=== PATIENT | female | born 1955 | race Caucasian/White ===

== ENCOUNTER 2017-04-14 12:42 | Emergency (ER) | payer MEDICARE, MEDICAID, SELFPAY ==
[2017-04-14] VITALS (15 sets, daily range): BP systolic 118–190; BP diastolic 74–100; PULSE 87–138; RESP 12–24; TEMP 35.8–36; O2SAT 88–102; BMI 36.6
--- NOTE | 2017-04-14 12:43 | EKG12_ITS ---
Test Reason : SEIZURE Blood Pressure : / mmHG Vent. Rate : 109 BPM Atrial Rate : 109 BPM P-R Int : 168 ms QRS Dur : 088 ms QT Int : 354 ms P-R-T Axes : 083 051 078 degrees QTc Int : 476 ms Sinus tachycardia Nonspecific ST and T wave abnormality Abnormal ECG Confirmed by LAURIE MARTIN, EZRA ([id number]), news editor STEPHANIE CHEATHAM ([id number]) on 04/16/2017 10:15:19 AM Referred By: BARB Confirmed By:EZRA SULLIVAN MD
--- NOTE | 2017-04-14 12:47 | CT_ITS ---
STUDY: CT BRAIN WITHOUT CONTRAST REASON FOR EXAM: Female, 61 years old. Seizure RADIATION DOSAGE (If Supplied By Facility): CTDIvol = ( 44.99 ) mGy, DLP = ( 745.49 ) mGycm TECHNIQUE: Transaxial CT imaging of the brain was performed without administration of intravenous contrast material. Individualized dose optimization techniques were used for this CT. COMPARISON: None. FINDINGS: There is a 0.7 x 0.7 x 0.5 cm intraparenchymal hemorrhage in the left temporal lobe (image 15 series 2). There are no additional areas of hemorrhage. There is no acute infarct. The ventricles are normal in configuration. The visualized paranasal sinuses are clear. The mastoid air cells are well aerated. There is no skull fracture. CT/Brain/Head without Contrast IMPRESSION: 0.7 x 0.7 x 0.5 cm intraparenchymal hemorrhage in the left temporal lobe. No additional areas of hemorrhage. No acute infarct. N.B. : The above information has been verbally conveyed by Angel Luis Harding to Dr. Shekhar Billings, Covering Physician, on 04/14/2017 13:56:38 (ET). Electronically Signed: Angel Luis Harding, at 13:48 EST Tel , Service support , N.B. : The above information has been verbally conveyed by Angel Luis Harding to Dr. Shekhar Billings, Covering Physician, on 04/14/2017 13:56:38 (ET).
--- NOTE | 2017-04-14 12:47 | EKG12_ITS ---
Test Reason : REPEAT-SEIZURE Blood Pressure : / mmHG Vent. Rate : 114 BPM Atrial Rate : 114 BPM P-R Int : 160 ms QRS Dur : 082 ms QT Int : 340 ms P-R-T Axes : 071 049 071 degrees QTc Int : 468 ms Sinus tachycardia Otherwise normal ECG Confirmed by LAURIE MARTIN, EZRA ([id number]), editor farm journal STEPHANIE CHEATHAM ([id number]) on 04/16/2017 10:03:30 AM Referred By: BARB Confirmed By:EZRA SULLIVAN MD
[2017-04-14] MEDS: LORazepam 2 MG/ML Syringe IV (12:50)
[2017-04-14 13:09] LABS: Absolute Lymphocyte Count 3.57 X10^3/ul (0.83-4.51); Basophil# 0.03 X10^3/uL; Basophil% 0.4 % (0-1); Eosinophil# 0.12 X10^3/uL; Eosinophils% 1.6 % (0-5); Hematocrit 45.7 % (37-47); Hemoglobin 15.3 g/dl (12.0-15.0); Lymphocyte # 3.57 X10^3/ul (4.0); Lymphocyte % 48.6 % (19-41); Mean Corp Hgb Conc 33.5 g/gl (32-36); Mean Corpuscular Hgb 33.1 pg (27.0-32.0); Mean Corpuscular Volume 98.9 fL (81-99); Mean Platelet Vol. 9.3 fl (6.2-12.0); Monocyte# 0.62 X10^3/uL; Monocyte% 8.4 % (0-10); Neutrophil # 2.99 X10^3/uL (2.7-7.7); Neutrophil % 40.9 % (47-70); POSITIVE COUNT NO; POSITIVE DIFFERENTIAL NO; POSITIVE MORPHOLOGY NO; Platelet Count 114 K/mm3 (150-450); RBC Distribution Width CV 13.4 % (11.6-14.6); RBC Distribution Width SD 48.4 fl (35.1-43.9); Red Blood Count 4.62 M/mm3 (4.2-5.4); White Blood Count 7.3 K/mm3 (4.4-11.0)
--- NOTE | 2017-04-14 13:14 | RAD_ITS ---
STUDY: X-RAY - ABDOMEN/PELVIS REASON FOR EXAM: Female, 61 years old. OG-tube placement. TECHNIQUE: Frontal portable view of the abdomen. COMPARISON: None. FINDINGS: There is an enteric tube noted with its tip in the distal stomach. The visualized lung bases are clear. There is no evidence of bowel obstruction in the visualized abdomen. RAD/Abdomen Single View (Portable) IMPRESSION: Satisfactory position of the enteric tube. Electronically Signed: Angel Luis Harding, at 13:49 EST Tel , Service support ,
--- NOTE | 2017-04-14 13:14 | RAD_ITS ---
STUDY: X-RAY CHEST REASON FOR EXAM: Female, 61 years old. Seizure TECHNIQUE: Frontal portable view of the chest COMPARISON: None. FINDINGS: There is an endotracheal tube noted with its tip approximately 3 cm above the jose. There is an enteric tube noted with its tip extending below the diaphragm. The lungs are clear. There are no pleural effusions. There is no pneumothorax. The heart is normal in size. The visualized osseous structures are within normal limits. RAD/Chest 1 View (Portable) IMPRESSION: Satisfactory position of the support lines and tubes. No acute thoracic pathology. Electronically Signed: Angel Luis Harding, at 15:02 EST Tel , Service support ,
[2017-04-14 13:16] LABS: International Normalized Ratio 1.3; Partial Thromboplast Time 27.2 Seconds (24.1-36.2); Prothrombin Time (Protime)PT. 15.6 SECONDS (11.7-14.9)
[2017-04-14] MEDS: Etomidate 20 MG/10 ML Vial IV ×2 (13:17→15:51)
--- NOTE | 2017-04-14 13:17 | ED.RN ---
ETOMIDATE 20 MG IV GIVEN BY THIS NURSE
[2017-04-14] MEDS: Rocuronium Bromide 50 MG/5 ML Vial 100 MG IV (13:18)
[2017-04-14 13:24] LABS: AST(SGOT) 105 U/L (15-37); Alanine Aminotransfer ALT/SGPT 102 U/L (12-78); Albumin, Serum 3.9 g/dL (3.4-5.0); Alkaline Phosphatase 132 U/L (45-117); Anion Gap 22 (5-15); BUN 14 mg/dL (7-18); BUN/Creat Ratio 12.8 RATIO (10-20); Bilirubin, Direct 0.18 mg/dL (0.00-0.30); Calcium,Total 8.8 mg/dL (8.5-10.1); Chloride 106 mmol/L (98-107); Creatinine, Serum 1.09 mg/dL (0.55-1.02); EST Glomerular Filtration Rate 55 mL/min (>60); Est Glom Filt Rate - Afr Amer 66 mL/min (>60); Estimated Creatinine Clearance 54.04 ml/min; Globulin 5.2 g/dL (2.2-4.2); Glucose 152 mg/dL (70-110); Lipase 234 U/L (73-393); Protein, Total 9.1 g/dL (6.4-8.2); Sodium Level 142 mmol/L (136-145)
--- NOTE | 2017-04-14 13:30 | ED.RN ---
PT TAKE TO CT
[2017-04-14 13:34] LABS: Alcohol, Blood (Medical)-Serum < 3.0 mg/dL
--- NOTE | 2017-04-14 13:40 | ED.VISSUMM ---
- ER Visit Summary Date of Service: 04/14/17 Chief Complaint: EMS called for altered mental status History of Present Illness: The patient is a 61 F who was not appropriate according to paramedics. She had no focal findings. They did not believe she had a stroke. She would not speak. Upon arrival I was asked to see her immediately. Patient is presently seizing and has a generalized tonic-clonic seizure. Pupils were deviated to the left. She is bleeding secondary to biting her tongue. No other history is obtainable. Per old records she has history of spinal stenosis, hepatitis C and hypertension. She has not had an emergency room visit since 2012. Patient's mother present to the ER. She states she spoke to her several times a day and was her normal self. She states she normally comes to her house on Sundays for a meal. She states she noted that her speech was garbled and had difficulty understanding her. The onset of this altered speech was noon. Informant states that she does not speak much in the car. 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 Her grandson was there. [place] [facility] [place] she began to seize. He states he brought her gently to the ground. There is no history of seizures. She has a remote history of heavy alcohol use. There is no known history of illicit drug use. Physical Examination: Patient is obese with a BMI of 36.6. Vitals are remarkable for tachycardia and tachypnea. Patient had rapid deterioration and became cyanotic and pulse ox dropped to 84% on 2 L. There was a good waveform. Per my exam she has both central and peripheral cyanosis. Pupils are 2-3 mm size slightly reactive. She appears to have nystagmus with fast component to the left. TMs are normal. Nares patent. Trach is midline. There is no carotid bruit. Heart is rapid and regular without murmur, gallop or rub. Heart tones are distant. Breath sounds are distant with diminished air movement. Abdomen is soft flabby without guarding. GCS initially was 3. Patient was moved from room 3 to room 2 because of her altered mental status. Patient was combative after the seizure and was given 2 mg of Ativan which would be protective for seizures as well as sedating. She was not hypoxic after the administration of Ativan. Remained combative and 2 mg of Versed was ordered, but the bursa it was never given. Test Results: EKG sinus tachycardia 114. White count is normal with 41 segs no bands 49% lymphs. Basic metabolic panel was marked for CO2 of 14 with an anion gap 22 and glucose 152. Alk phos is 132. ALT and AST are 102 and 105 respectively. Lipase and coags normal. Alcohol less than 3.0. CT of the head reveals a small intraparenchymal bleed peripheral left parietal area. Emergency Department Course and Treatment: Patient received 2 mg of Ativan for seizure activity/combativeness. She was moved from room 3 to room 2 because of concern for deterioration and need for intubation. She did require an ablation because she had central cyanosis. She was placed on 100% nonrebreather. She remained hypoxic. She was ventilated by bag valve mask. Saturation prior to intubation was 9 9%. Patient received 20 mg of etomidate and 100 mg rocuronium. As I was placing the blade to intubate patient she began to vomit. She was intubated with a 7.5 endotracheal tube. Breath sounds were noted bilaterally and there is appropriate color change on capnometer. Since there is no history of seizures and she has altered mental status with small pupils will obtain CAT scan to rule out intracranial bleed, stroke, mass. Also will obtain tox screen and alcohol level to rule out drug abuse. Appropriate blood work was ordered as well. Concerned patient may have aspirated prior to arrival and may have prior to intubation. Orogastric tube was placed for GI decompression and Garcia was placed. Will obtain a blood gas to assess her acid-base status as well as her PaO2. Will make vent setting adjustments per blood gas results Treatment Plan: Mother and grandson were made aware of the intracranial bleed. She requested transfer to [facility]. The guard lieutenant/neurosurgeon for [facility] was paged Disposition: Transfer [facility] ICU Impression: 1. Left parietal intracranial bleed 2. New onset seizure secondary to #1 3. History of hypertension 4. History of hepatitis C 5. History of spinal stenosis 6. History of tobacco use 7. Oral tracheal intubation 8. Critical care time 33 minutes This note was generated with [employer] dictation software. It may contain incorrect words, spelling, and punctuation that were not noted in review of the chart prior to signing ED Disposition - Plan for ED Patient: Chief Complaint: Seizure Referrals: Peewee Samano MD [Primary Care Provider] -
--- NOTE | 2017-04-14 13:46 | ED.RN ---
PT ARRIVED TO THE ER BY EMS ACTIVELY SEIZING. DR DAY CALLED TO THE ROOM. PT HAVING SNORING RESPIRATIONS. PT REPOSITIONED ONTO LEFT SIDE WITH HELP OF EMS. AIRWAY OPENED. PT BECAME COMBATIVE ATTEMPTING TO GET OUT OF THE BED. IV ESTABLISHED. IV ATIVAN GIVEN. PT CONTINUES TO FIGHT WITH STAFF. DR DAY CAME TO THE BEDSIDE. PT COLOR KWAN WITH ASHEN UNDERTONE DIAPHORETIC. PT MOVED TO BED 2. PT LOOKING AT THE STAFF AND WILL TRACK VOICES BUT IS NOT FOLLOWING COMMANDS. PT RESPIRATIONS SLOWING COLOR WORSENING. RESPIRATORY THERAPY STARTED ASSISTING WITH VENTILATIONS WITH AMBU BAG. PT SEDATED AND INTUBATED BY DR DAY. OG INSERTED BY THIS NURSE. PT TAKEN TO CT. PT RETURNED TO ED BED 2. CHEST XRAY COMPLETED AT THE BEDSIDE
--- NOTE | 2017-04-14 13:47 | ED.DCSUM_ITS ---
- ER Visit Summary Date of Service: 04/14/17 Chief Complaint: EMS called for altered mental status History of Present Illness: The patient is a 61 F who was not appropriate according to paramedics. She had no focal findings. They did not believe she had a stroke. She would not speak. Upon arrival I was asked to see her immediately. Patient is presently seizing and has a generalized tonic-clonic seizure. Pupils were deviated to the left. She is bleeding secondary to biting her tongue. No other history is obtainable. Per old records she has history of spinal stenosis, hepatitis C and hypertension. She has not had an emergency room visit since 2012. Patient's mother present to the ER. She states she spoke to her several times a day and was her normal self. She states she normally comes to her house on Sundays for a meal. She states she noted that her speech was garbled and had difficulty understanding her. The onset of this altered speech was noon. Informant states that she does not speak much in the car. She did fruit picker her purse walked into her house. Her grandson was there. When Fifi went to [facility] [place] the grandson she began to seize. He states he brought her gently to the ground. There is no history of seizures. She has a remote history of heavy alcohol use. There is no known history of illicit drug use. Physical Examination: Patient is obese with a BMI of 36.6. Vitals are remarkable for tachycardia and tachypnea. Patient had rapid deterioration and became cyanotic and pulse ox dropped to 84% on 2 L. There was a good waveform. Per my exam she has both central and peripheral cyanosis. Pupils are 2-3 mm size slightly reactive. She appears to have nystagmus with fast component to the left. TMs are normal. Nares patent. Trach is midline. There is no carotid bruit. Heart is rapid and regular without murmur, gallop or rub. Heart tones are distant. Breath sounds are distant with diminished air movement. Abdomen is soft flabby without guarding. GCS initially was 3. Patient was moved from room 3 to room 2 because of her altered mental status. Patient was combative after the seizure and was given 2 mg of Ativan which would be protective for seizures as well as sedating. She was not hypoxic after the administration of Ativan. Remained combative and 2 mg of Versed was ordered, but the bursa it was never given. Test Results: EKG sinus tachycardia 114. White count is normal with 41 segs no bands 49% lymphs. Basic metabolic panel was marked for CO2 of 14 with an anion gap 22 and glucose 152. Alk phos is 132. ALT and AST are 102 and 105 respectively. Lipase and coags normal. Alcohol less than 3.0. CT of the head reveals a small intraparenchymal bleed peripheral left parietal area. Emergency Department Course and Treatment: Patient received 2 mg of Ativan for seizure activity/combativeness. She was moved from room 3 to room 2 because of concern for deterioration and need for intubation. She did require an ablation because she had central cyanosis. She was placed on 100% nonrebreather. She remained hypoxic. She was ventilated by bag valve mask. Saturation prior to intubation was 9 9%. Patient received 20 mg of etomidate and 100 mg rocuronium. As I was placing the blade to intubate patient she began to vomit. She was intubated with a 7.5 endotracheal tube. Breath sounds were noted bilaterally and there is appropriate color change on capnometer. Since there is no history of seizures and she has altered mental status with small pupils will obtain CAT scan to rule out intracranial bleed, stroke, mass. Also will obtain tox screen and alcohol level to rule out drug abuse. Appropriate blood work was ordered as well. Concerned patient may have aspirated prior to arrival and may have prior to intubation. Orogastric tube was placed for GI decompression and Garcia was placed. Will obtain a blood gas to assess her acid-base status as well as her PaO2. Will make vent setting adjustments per blood gas results Treatment Plan: Mother and grandson were made aware of the intracranial bleed. She requested transfer to [facility]. The sharepoint consultant/neurosurgeon for [facility] was paged Disposition: Transfer [facility] ICU Impression: 1. Left parietal intracranial bleed 2. New onset seizure secondary to #1 3. History of hypertension 4. History of hepatitis C 5. History of spinal stenosis 6. History of tobacco use 7. Oral tracheal intubation 8. Critical care time 33 minutes This note was generated with [employer] dictation software. It may contain incorrect words, spelling, and punctuation that were not noted in review of the chart prior to signing ED Disposition - Plan for ED Patient: Chief Complaint: Seizure Referrals: Peewee Samano MD [Primary Care Provider] -
[2017-04-14 14:06] LABS: Bacteria 0 SEEN /hpf (None Seen); Mucous, Urine 0 SEEN /hpf (<or=2+); Red Blood Cells-Urine 0 SEEN /hpf (0-5); Squamous Epithelial Cells - UA 0 SEEN /hpf (5-10); White Blood Cells 0 SEEN /hpf (0-5)
[2017-04-14 14:14] LABS: Color, Urine Straw (Yellow); Glucose, Dipstick Normal (Normal); Ketone-Dipstick 5 mg/dl (Negative); Leukocyte Esterase-Dipstick Negative /ul (Negative); Nitrite-Dipstick Negative (Negative); Occult Blood-Urine 50 /ul (Negative); Protein-Dipstick 30 mg/dl (Negative); Specific Gravity, Urine 1.025 (1.002-1.030); Urine Bilirubin Dipstick Negative (Negative); Urine Clarity Clear (Clear); Urine Urobilinogen Normal (Normal)
[2017-04-14 14:26] LABS: Allen Test POS; Base Excess -3 mmol/L (-2 to +2); Bicarbonate 25.2 mmol/L (22-26); Blood Gas Specimen Type ART; FI02 100; Mode A-C; O2 Delivery Device Vent; PEEP 5; PO2 322 mmHG (75-100); RR 12; SITE R Brachial; SO2 100 % (95-99); Time Given 1404; Total Carbon Dioxide 27 mmol/L; Vt 500; pCO2 65.3 mmHg (35-45); pH 7.19 (7.35-7.45)
[2017-04-14 14:28] LABS: Amphetamine Urine VISTA NEGATIVE (<1000 ng/mL); Barbiturate Urine VISTA NEGATIVE (< 200 ng/mL); Benzodiazepine Urine VISTA NEGATIVE (< 200 ng/mL); Cocaine Urine VISTA NEGATIVE (< 300 ng/mL); Ecstacy Urine VISTA NEGATIVE (< 500 ng/mL); Methadone Urine VISTA NEGATIVE (< 300 ng/mL); PCP Urine VISTA NEGATIVE (< 25 ng/mL); THC Urine VISTA NEGATIVE (< 50 ng/mL); Vista UDS pH Range 5
[2017-04-14] MEDS: Midazolam 2 MG/2 ML Syringe IV ×2 (14:54→15:50)
[2017-04-14] MEDS: Labetalol 100 MG/20 ML Vial 20 MG IV (14:57)
--- NOTE | 2017-04-14 15:39 | ED.RN ---
At approx 1525 pt noted to be moving hands bilat and head. Attempted to calm pt by talking to her and found that pt responded appropriately to questions asked with head nods. Pt shook head no when asked if she had head pain and yes when asked if she could see me. Md. Billings notified of pt's status change. No orders received.
--- NOTE | 2017-04-14 16:06 | ED.RN ---
MERGED WITH [facility] AT THE BEDSIDE. MEDIC IS NOT COMFORTABLE TRANSPORTING THE PT. EVEN AFTER ADDITIONAL SEDATION, PER AMBULANCE CREW PT DIFFICULT TO MANUALLY BAG. ATTEMPTED TO SUCTION. TRANSPORT CREW DOES NOT FEEL COMFORTABLE TAKING THE PT. THIS NURSE [place] [facility] [place] AN AMBULANCE AVAILABLE TO TRANSPORT A VENTILATED PT. [facility]SPORT IS NOT AVAILABLE FOR 4-[address] DAY CHECK TO SEE [facility] OR [facility] ARE ABLE TO FLY DUE TO WEATHER
--- NOTE | 2017-04-14 16:16 | ED.RN ---
[facility] ETA [address] DAY AND SECURITY NOTIFIED
== END 2017-04-14 16:46 | disposition short-term general hospital (02) ==
PROVIDERS: Emergency Provider Emergency Medicine; Family Provider Internal Medicine; PCP Internal Medicine
DX: I61.8 Other nontraumatic intracerebral hemorrhage (principal); R47.89 Other speech disturbances; I10 Essential (primary) hypertension; G40.409 Other generalized epilepsy and epileptic syndromes, not intractable, without status epilepticus; B19.20 Unspecified viral hepatitis C without hepatic coma; M48.00 Spinal stenosis, site unspecified; E66.9 Obesity, unspecified; R23.0 Cyanosis; Z68.36 Body mass index [BMI] 36.0-36.9, adult; Z72.0 Tobacco use
CPT/HCPCS: 31500; 36600; 51702; 70450; 71010; 74000; 80076; 81001; 83690; 85610; 93005; 94002; 96374; 96375; 96376; 99285; 80048; 80307; 80320; 82803; 85025; 85730; 99251; J7030; A4216; G0463; G0480

== ENCOUNTER 2017-08-02 14:53 | Emergency (ER) | payer MEDICARE, MEDICAID, SELFPAY ==
[2017-08-02 14:53] VITALS: BP 114/77; PULSE 76; RESP 18; TEMP 36.3; O2SAT 95
--- NOTE | 2017-08-02 15:01 | CT_ITS ---
STUDY: CT BRAIN WITHOUT CONTRAST REASON FOR EXAM: Female, 61 years old. Loss of consciousness and vomiting following head trauma. History of prior hemorrhagic stroke. RADIATION DOSAGE (If Supplied By Facility): CTDIvol = ( 60.81 ) mGy, DLP = ( 1609.64 ) mGycm TECHNIQUE: Transaxial CT imaging of the brain was performed without administration of intravenous contrast material. Individualized dose optimization techniques were used for this CT. COMPARISON: None. FINDINGS: Normal soft tissue structures. Normal calvarium. There is asymmetrical appearance of the lateral ventricles were there is decreased size of the left lateral ventricle due to edema involving the left parietal occipital lobes. There is evidence of a decreased attenuation in the left temporoparietal lobe with evidence of hemorrhagic contusion in the surrounding cortical sulci. This is suggestive of either an evolving hemorrhagic stroke or with history of trauma, this may represent focal hemorrhagic contusion and edema. Clinical correlation is recommended. Normal basal ganglia and thalami. Normal brainstem. Normal cerebellum. Normal visualized paranasal sinuses. CT/Brain/Head without Contrast IMPRESSION: Findings suggestive of a hemorrhagic stroke versus traumatic contusion with surrounding edema. Electronically Signed: Mikael Yarbrough MD at 15:31 EST Tel [phone], Service support ,
--- NOTE | 2017-08-02 15:01 | EKG12_ITS ---
Test Reason : Blood Pressure : / mmHG Vent. Rate : 077 BPM Atrial Rate : 077 BPM P-R Int : 158 ms QRS Dur : 072 ms QT Int : 400 ms P-R-T Axes : 079 054 068 degrees QTc Int : 452 ms Normal sinus rhythm Normal ECG Confirmed by LAURIE MARTIN, EZRA ([id number]), editor newspaper STEPHANIE CHEATHAM ([id number]) on 08/05/2017 2:55:39 PM Referred By: BARB Confirmed By:EZRA SULLIVAN MD
[2017-08-02] MEDS: Ondansetron 4 MG/2 ML Vial IV (15:08)
[2017-08-02 15:11] LABS: Bedside Glucose 138 mg/dL (70-110)
[2017-08-02 15:15] LABS: Absolute Lymphocyte Count 1.22 X10^3/ul (0.83-4.51); Absolute Neutrophil Count 4.7 X10^3/uL (2.0-7.7); Basophil# 0.01 X10^3/uL; Basophil% 0.2 % (0-1); Eosinophil# 0.04 X10^3/uL; Eosinophils% 0.6 % (0-5); Hematocrit 42.9 % (37-47); Hemoglobin 13.9 g/dl (12.0-15.0); Lymphocyte # 1.22 X10^3/ul (4.0); Lymphocyte % 18.4 % (19-41); Mean Corp Hgb Conc 32.4 g/gl (32-36); Mean Corpuscular Hgb 31.4 pg (27.0-32.0); Mean Corpuscular Volume 96.8 fL (81-99); Mean Platelet Vol. 8.9 fl (6.2-12.0); Monocyte# 0.64 X10^3/uL; Monocyte% 9.6 % (0-10); Neutrophil # 4.72 X10^3/uL (2.7-7.7); POSITIVE COUNT NO; POSITIVE DIFFERENTIAL NO; POSITIVE MORPHOLOGY NO; Platelet Count 83 K/mm3 (150-450); RBC Distribution Width CV 14.8 % (11.6-14.6); RBC Distribution Width SD 52.5 fl (35.1-43.9); Red Blood Count 4.43 M/mm3 (4.2-5.4); White Blood Count 6.6 K/mm3 (4.4-11.0)
[2017-08-02 15:26] LABS: Prothrombin Time (Protime)PT. 13.1 SECONDS (11.7-14.9)
[2017-08-02] MEDS: 0.9% Normal Saline 1,000 ML 150 ML IV (15:26)
[2017-08-02 15:27] LABS: Partial Thromboplast Time 25.8 Seconds (24.1-36.2)
[2017-08-02 15:39] LABS: AST(SGOT) 58 U/L (15-37); Alanine Aminotransfer ALT/SGPT 91 U/L (13-56); Albumin, Serum 3.2 g/dL (3.2-5.0); Alkaline Phosphatase 167 U/L (45-117); BUN 21 mg/dL (7-18); BUN/Creat Ratio 24.8 RATIO (10-20); Calcium,Total 8.4 mg/dL (8.5-10.1); Chloride 108 mmol/L (98-107); Creatinine, Serum 0.85 mg/dL (0.55-1.02); EST Glomerular Filtration Rate 73 mL/min (>60); Est Glom Filt Rate - Afr Amer 88 mL/min (>60); Globulin 4.3 g/dL (2.2-4.2); Glucose 122 mg/dL (74-106); Potassium 3.9 mmol/L (3.5-5.1); Protein, Total 7.5 g/dL (6.4-8.2); Sodium Level 139 mmol/L (136-145)
[2017-08-02 15:40] LABS: Anion Gap 7 (5-15)
--- NOTE | 2017-08-02 15:45 | ED.VISSUMM ---
- ER Visit Summary Date of Service: 08/02/17 Chief Complaint: Altered level of consciousness History of Present Illness: The patient is a 61 F who was brought to the emergency room because of altered level of conscious. She is not alert nor has she oriented. Her speech is garbled. Unable to obtain any history. Physical Examination: Vital signs are unremarkable. There is blood noted around the left side of the mouth. There is blood noted over the left earlobe and emesis in her hair. She responds I am cold to the questions asked. Pupils are 2-3 mm and responsive. There is no scleral icterus. Conjunctive is not injected. There is no hemotympanum. There is no CSF otorrhea rhinorrhea. Trach is midline. Lungs are clear to auscultation. Heart is regular. Abdomen soft nontender. She withdraws to tactile stimuli. Reflexes are 2+ and symmetric upper and lower extremity. She withdraws to Babinski testing. There is no clonus. Test Results: CBC is unremarkable. Electrode panel is unremarkable. Coags are unremarkable. Acetaminophen level is less than 2. CT of the head reveals neurogenic edema with question of mass-effect. Emergency Department Course and Treatment: Since she is on acetaminophen a segmental level was obtained. EKG was obtained as well as CAT scan because of concern for traumatic brain injury. Blood work was obtained which included a CBC, BMP, hepatic and coags. Treatment Plan: Called me and informed me that his mother's been complaining of headache for the past 3 days. She was last spoken to at 2130 last evening, August 01. Her mental status has not improved much. Her response to questions are I feel cold or I am okay . Disposition: Deferred to [facility] emergency room accepting physicians Dr. Escobedo and Dr. Parish Bell Impression: 1. Altered mental status 2. Neurogenic edema with mass-effect left parietal region 3. History of seizure disorder 4. History of depression 5. History of hypertension This note was generated with [employer] dictation software. It may contain incorrect words, spelling, and punctuation that were not noted in review of the chart prior to signing ED Disposition - Plan for ED Patient: Chief Complaint: Alt LOC Referrals: Peewee Samano MD [Primary Care Provider] -
[2017-08-02 16:14] VITALS: BP 114/58; PULSE 83; RESP 20; O2SAT 97
--- NOTE | 2017-08-02 17:01 | NURSING ---
Spoke with pharmacist at [facility] and pt has no known allergies listed.
[2017-08-02 17:05] LABS: Acetaminophen (Tylenol) Level < 2.0 ug/mL (10.0-30.0)
[2017-08-02 18:00] VITALS: BP 112/61; PULSE 81; RESP 24; O2SAT 94
[2017-08-02 20:03] VITALS: BP 120/64; PULSE 90; PULSE 91; RESP 17; RESP 23; O2SAT 93; O2SAT 94
[2017-08-02 20:25] VITALS: BP 125/75; PULSE 94; RESP 19; O2SAT 94
--- NOTE | 2017-08-02 20:34 | NURSING ---
DR DAY CALLED SON, TRACE, AND UPDATED HIM OF TRANSFER TO [facility].
== END 2017-08-02 20:58 | disposition short-term general hospital (02) ==
PROVIDERS: Emergency Provider Emergency Medicine; Family Provider Internal Medicine; PCP Internal Medicine
DX: R41.82 Altered mental status, unspecified (principal); R22.0 Localized swelling, mass and lump, head; G40.909 Epilepsy, unspecified, not intractable, without status epilepticus; F32.9 Major depressive disorder, single episode, unspecified; I10 Essential (primary) hypertension; E66.9 Obesity, unspecified; Z79.899 Other long term (current) drug therapy
CPT/HCPCS: 51702; 70450; 80048; 80076; 80329; 82962; 84484; 85025; 85610; 85730; 93005; 96361; 96374; 99285; J7030; A4216; G0480; J2405

== ENCOUNTER → 2017-09-30 09:01 | Outpatient (CLI) | payer MEDICARE, MEDICAID, SELFPAY | PROVIDERS: Family Provider Internal Medicine; PCP Internal Medicine; Visit Provider Internal Medicine Hematology & Oncology | DX: C71.9 Malignant neoplasm of brain, unspecified (principal); D89.9 Disorder involving the immune mechanism, unspecified | CPT/HCPCS: 94642 ==

== ENCOUNTER → 2017-11-08 09:09 | Outpatient (CLI) | payer MEDICARE, MEDICAID, SELFPAY | PROVIDERS: Family Provider Internal Medicine; PCP Internal Medicine; Visit Provider Internal Medicine Hematology & Oncology | DX: C71.9 Malignant neoplasm of brain, unspecified (principal); B19.20 Unspecified viral hepatitis C without hepatic coma; D89.9 Disorder involving the immune mechanism, unspecified | CPT/HCPCS: 94642 ==

== ENCOUNTER 2018-05-25 15:13 | Observation (INO) | payer MEDICARE, MEDICAID, SELFPAY ==
[2018-05-25 15:14] VITALS: BP 115/80; PULSE 81; RESP 16; TEMP 36.6; O2SAT 98; BMI 27.2
--- NOTE | 2018-05-25 15:29 | RAD_ITS ---
STUDY: X-RAY - LEFT SHOULDER REASON FOR EXAM: Female, 62 years old. Fall today, left shoulder pain with deformity TECHNIQUE: 3 view(s) of the shoulder. COMPARISON: None. FINDINGS: There is a transverse dominant fracture of the humeral neck with a longitudinal component extending through the greater tuberosity. There is approximately at least 1.1 cm displacement. The humeral head is in gross alignment with the glenoid. There is diffuse soft tissue swelling. Normal visualized pulmonary apex. RAD/Shoulder min 2 Views IMPRESSION: Left humeral neck fracture with displacement. Electronically Signed: Ryne Florian MD at 16:32 EST , Service support ,
--- NOTE | 2018-05-25 15:29 | RAD_ITS ---
STUDY: X-RAY - LEFT WRIST REASON FOR EXAM: Female, 62 years old. Fall, pain of the left wrist TECHNIQUE: 3 view(s) of the wrist were obtained. COMPARISON: None. FINDINGS: Normal visualized distal radius and ulna. Normal radiocarpal articulation. Normal distal radioulnar articulation. Normal carpal bones. Normal carpal articulations. There is an accessory ossicle adjacent to the ulnar styloid. There is degenerative arthrosis of the carpometacarpal articulation of the thumb. Normal second through fifth carpometacarpal articulations. Normal visualized metacarpal bones. The soft tissue structures are unremarkable. RAD/Wrist min 3 Views IMPRESSION: No fracture or malalignment. Electronically Signed: Ryne Florian MD at 16:31 EST , Service support ,
--- NOTE | 2018-05-25 15:29 | CT_ITS ---
STUDY: CT BRAIN WITHOUT CONTRAST REASON FOR EXAM: Female, 62 years old. Patient fell and hit left forehead, history of brain surgery RADIATION DOSAGE (If Supplied By Facility): CTDIvol = ( ) mGy, DLP = ( ) mGycm TECHNIQUE: Transaxial CT imaging of the brain was performed without administration of intravenous contrast material. Individualized dose optimization techniques were used for this CT. COMPARISON: 08/02/2017 FINDINGS: There is soft tissue swelling of the left periorbital scalp. There are operative changes of the left temporoparietal bone, new since the prior study. Increased mass affect in the left posterior frontal, parietal and temporal lobes with similar asymmetric narrowing of the left lateral ventricle. There is mild left to right midline shift (4 mm) which is similar when compared to the prior study. Increased vasogenic edema in the left frontal, parietal and temporal lobes with small focal areas of increased density in the posterior temporal lobe on axial image 18 that could represent petechial hemorrhage (more likely chronic than acute) or calcification, new since the prior study. Normal basal ganglia and thalami. Normal brainstem. Normal cerebellum. There is no intracranial hemorrhage. There are no findings of an acute ischemic infarction. Normal visualized paranasal sinuses. CT/Brain/Head without Contrast IMPRESSION: 1. Increasing vasogenic edema and mass effect of the left parietal, temporal and frontal lobes, suggesting underlying neoplasm. Operative changes of the left calvarium. Punctate densities are new since the prior study, likely related to prior surgery (chronic hemorrhage) or calcification. 2. Left frontal/periorbital soft tissue swelling. No subarachnoid hemorrhage is seen. No subdural hematoma. Electronically Signed: Ryne Florian MD at 16:30 EST , Service support ,
--- NOTE | 2018-05-25 15:36 | ED.VISSUMM ---
- ER Visit Summary Date of Service: 05/25/18 Chief Complaint: Fall from standing position with injury to head, and left upper extremity. Patient was seen approximately 12 months ago and had an intracranial bleed with status epilepticus. She was transferred to outside facility. She underwent surgery for apparent brain tumor. History of Present Illness: The patient is a 62 F who fell from a standing position. She complains of head pain with nausea without vomiting. She denies double vision or blurred vision. She denies ringing or ears or decreased hearing. She denies neck pain. She denies new paresthesia, anesthesia or motor weakness. She reports pain that she localizes to the left shoulder and left wrist. Difficult to understand secondary to slurred speech which is secondary to the surgery according the mother. She denies cardiac or respiratory symptoms. She denies vomiting or diarrhea. She denies myalgias, arthralgias. She is on no anticoagulant. She does not answer questions that are asked. Physical Examination: Vital signs noted and normal. She has a significant subcutaneous hematoma involving the left brow, forehead and sabianist area. There is no palpable depression. Pupils equal round reactive paradoxic muscle intact. Sclerae anicteric. There is no subconjunctival hemorrhage. No CSF otorrhea Parmjit. No hemotympanum. No septal deviation hematoma. No TMJ tenderness and no evidence of malocclusion. Trach is midline. Is no midline cervical tenderness. There is significant pain over the proximal humerus. Is no pain the patient over the clavicle or AC joint. There is no pain the patient of the lateral medial malleolus or olecranon process. There is no pain the patient of the radial head. There is pain abrasion over the distal radius and carpal bones. There is slight soft tissue swelling noted. There is an abrasion noted as well. There is no pain the patient over the metacarpal bones or phalanges. Axillary, median, radial and ulnar function intact. Chest is nontender. Heart is regular without murmur, gallop or rub. Lungs are clear auscultation. Abdomen soft nontender. Is no pain palpation of the pelvis. GCS is 14. Test Results: Three-view x-ray of the left shoulder reveals a nondisplaced proximal humeral fracture involving the greater tuberosity and surgical neck. The three-view x-ray of the wrist reveals no acute process. Furthermore there is no evidence of volar fat pad. CT of the head reveals subcutaneous hematoma and increased vasogenic edema from prior. She has known cancer. Emergency Department Course and Treatment: We will obtain CT of the head to evaluate for intracranial bleed and fracture. Also obtain x-ray of the left shoulder and wrist to evaluate for fracture. Patient was offered pain medicine, which she declined. Treatment Plan: Sling and swath referral to Dr. Liban Atkinson. Follow-up with oncologist Disposition: Discharge to home Impression: 1. Nondisplaced proximal humeral fracture left initial encounter 2. Left wrist contusion initial encounter 3. Known brain cancer with no evidence of intracranial bleed This note was generated with [employer] dictation software. It may contain incorrect words, spelling, and punctuation that were not noted in review of the chart prior to signing ED Disposition - Plan for ED Patient: Chief Complaint: Fall Instructions: ED Fx Shoulder, ED Sling and Swathe, ED Contusion Upper Ext, ED Concussion Referrals: Peewee Samano MD [Primary Care Provider] - As Needed Liban Atkinson DO [STAFF PHYSICIAN] - 5-7 Days
[2018-05-25] MEDS: Diphth,Pertuss(Acell),Tet Vac 0.5 ML Vial IM (16:01)
[2018-05-25] MEDS: Morphine 4 MG/ML Syringe 6 MG IV (16:40)
[2018-05-25] MEDS: Ondansetron 4 MG/2 ML Vial IV (16:40)
[2018-05-25 17:42] VITALS: PULSE 61; RESP 12
[2018-05-25] MEDS: morphine 8 MG/ML Syringe 6 MG IV (18:21)
--- NOTE | 2018-05-25 18:32 | ED.VISSUMM ---
- ER Visit Summary Date of Service: 05/25/18 Chief Complaint: [] History of Present Illness: The patient is a 62 F [] Physical Examination: [] Test Results: [] Emergency Department Course and Treatment: [] Treatment Plan: [] Disposition: [] Impression: [] This note was generated with [employer] dictation software. It may contain incorrect words, spelling, and punctuation that were not noted in review of the chart prior to signing ED Disposition - Plan for ED Patient: Chief Complaint: Fall Instructions: ED Concussion, ED Contusion Upper Ext, ED Fx Shoulder, ED Sling and Swathe Prescriptions: Oxycodone HCl/Acetaminophen [Percocet 5/325] 1 tab PO Q6H PRN PRN 5 Days #20 tab PRN Reason: Pain Referrals: Liban Atkinson DO [STAFF PHYSICIAN] - 5-7 Days Peewee Samano MD [Primary Care Provider] - As Needed
--- NOTE | 2018-05-25 18:35 | ED.DCSUM_ITS ---
- ER Visit Summary Date of Service: 05/25/18 Chief Complaint: [] History of Present Illness: The patient is a 62 F [] Physical Examination: [] Test Results: [] Emergency Department Course and Treatment: [] Treatment Plan: [] Disposition: [] Impression: [] This note was generated with [employer] dictation software. It may contain incorrect words, spelling, and punctuation that were not noted in review of the chart prior to signing ED Disposition - Plan for ED Patient: Chief Complaint: Fall Instructions: ED Concussion, ED Contusion Upper Ext, ED Fx Shoulder, ED Sling and Swathe Prescriptions: Oxycodone HCl/Acetaminophen [Percocet 5/325] 1 tab PO Q6H PRN PRN 5 Days #20 tab PRN Reason: Pain Referrals: Liban Atkinson DO [STAFF PHYSICIAN] - 5-7 Days Peewee Samano MD [Primary Care Provider] - As Needed
--- NOTE | 2018-05-25 19:01 | ED.RN ---
SON CALLED TO INQUIRE ABOUT PATIENT'S STATUS AND MADE AWARE THAT SHE WAS TO BE DISCHARGED HOME AND DID NOT MEET ADMISSION CRITERIA, SON WAS UPSET ABOUT PLAN OF CARE AND SEWING MACHINES SALESPERSON MADE AWARE.
--- NOTE | 2018-05-25 19:40 | CM.ED ---
SOCIAL WORK NOTE THIS WORKER SPOKE WITH PT'S OLDEST SON, HERIBERTO [phone]. SON REPORTS CONCERNS WITH PT BEING DISCHARGED TO THE STREET. SON VERY CONCERNED WITH PT'S CONDITION AND REQUESTING PT BE OBSERVED OVER NIGHT. SON REPORTS PT LIVES HOME ALONE AND STATES MANY SOCIAL ISSUES. SON STATES LIVES [address] AND WILL BE ABLE TO COME TO THE HOSPITAL TOMORROW. UPDATED NURSE, RALF ON THE ABOVE. THIS WORKER AND NURSE TO UPDATE DR. DAY ON SON'S CONCERNS. WILL FOLLOW.
--- NOTE | 2018-05-25 19:42 | PCM.HP.STD ---
Problem List (1) Left humeral fracture Status: Acute (2) Head contusion Status: Acute History of Present Illness Date of Admission: 05/25/18 Chief Complaint: fall The patient is a 67-year-old female with a significant history of brain cancer who had a fall today because of missed steps. Patient had expressive aphasia and is difficult to obtain accurate history from her. At emergency department CT scan of the head showed increasing vasogenic edema. Humerus x-ray of the left showed humeral neck fracture with displacement for which patient had a sling and swath. X-ray of the left wrist was unremarkable. Per emergency department doctor patient's son wants patient to be a DNR CC. Past Medical History Allergies diclofenac Allergy (Verified 04/14/17 14:26) GI UPSET duloxetine [From Cymbalta] Allergy (Verified 04/14/17 14:26) MENTAL STATUS CHANGES erythromycin base Allergy (Verified 04/14/17 14:26) Vomiting gabapentin Allergy (Verified 04/14/17 14:26) Unknown naproxen Allergy (Verified 04/14/17 14:26) Upset Stomach neomycin Allergy (Verified 04/14/17 14:26) Vomiting polymyxin B Allergy (Verified 04/14/17 14:26) Nausea Sulfa (Sulfonamide Antibiotics) Allergy (Verified 04/14/17 14:26) STOMACH REACTIONS Home Medications: Ambulatory Orders Medication Instructions Recorded Atenolol [Tenormin (beta Cruz)] 25 mg PO DAILY 04/14/17 traMADol [Ultram (G)] 50 mg PO TID PRN PRN 04/14/17 Acetaminophen [Tylenol Extra 500 mg PO Q6H PRN PRN 08/02/17 Strength] Atenolol [Tenormin (beta Cruz)] 25 mg PO DAILY 08/02/17 Methocarbamol [Robaxin-750] 1,500 mg PO BID 08/02/17 Multivit-Min/FA/Lycopen/Lutein 1 each PO DAILY 08/02/17 [Centrum Silver Tablet] Quetiapine Fumarate [Seroquel] 50 mg PO QHS 08/02/17 levETIRAcetam tablet [Keppra 500 mg PO BID 08/02/17 tablet] traMADol [Ultram] 50 mg PO Q8H PRN 08/02/17 Oxycodone HCl/Acetaminophen 1 tab PO Q6H PRN PRN 5 Days #20 tab 05/25/18 [Percocet 5/325] Surgical History: - - Brain surgery. Lives: Alone Smoking Status: Former smoker - *Family History Maternal History Items: - - Unable to be obtained since patient is severely aphasic. Paternal History Items: - - Unable to be obtained since patient is severely aphasic. Review of Systems Unable to obtain accurate/complete ROS d/t: patient is severely aphasic. VTE Information - Inpt Only VTE Present on Admission: No VTE Mechan Device Prophylaxis: None VTE Pharm Prophylaxis ordered?: Yes Patient Problems: Active and Suspected Problems (This Medical Record has been edited. Action required.) Left humeral fracture (Acute) Head contusion (Acute) - Physical Exam General: Alert, Confused HEENT: - - Left supra orbital swelling and erythema Neck: Supple, No JVD, Negative Carotid Bruits Lungs: Clear to auscultation, Normal air movement Cardiovascular: Regular rate, No murmurs Abdomen: Bowel Sounds Present, Soft, Non Tender Extremities: - - Left in sling and swath. Left shoulder severely tender. Left wrist mildly tender. Skin: No rashes Musculoskeletal: Tenderness - Left shoulder; left wrist Neurological: - - Patient is alert but she has expressive aphasia with intermittent clear speech; chronic.. Psych/Mental Status: Normal Affect Vital Signs Temp Pulse Resp BP Pulse Ox 97.8 F 61 12 115/80 98 05/25/18 15:14 05/25/18 17:42 05/25/18 17:42 05/25/18 15:14 05/25/18 15:14 Oxygen Delivery Method Room Air Weight: 86.183 kg Body Mass Index (BMI) 27.2 Finger Stick Blood Glucose 138 Assessment/Plan All Active Problems (This Medical Record has been edited. Action required.) Left humeral fracture (Acute) Head contusion (Acute) The patient is a 67-year-old female with a significant history of brain cancer who had a fall today because of missed steps and with a left supraorbital swelling; left shoulder pain; left wrist pain and radiographic evidence of left humeral neck fracture with displacement for which patient had a sling and swath. Humeral neck fracture with displacement By radiologist interpretation there is approximately at least 1.1 cm displacement. The humeral head is in gross alignment of the glenoid. Patient had a sling with swath. Per emergency department doctor patient supposed to follow-up with orthopedic surgeon Dr. Atkinson in 5-7 days. Pain control with oxycodone as needed. Antiemetics and bowel protocol in the setting of narcotic administration. Left supra orbital contusion Apply ice. Left wrist pain Secondary to fracture Oxycodone as needed. Brain tumor with vasogenic edema A CT of the head showed increasing vasogenic edema; small focal areas of increased density in the posterior temporal lobe which was interpreted as more likely chronic. Family does not want any aggressive care at this time. The emergency department doctor family reported that her cancer is not treatable at this time. Receive Decadron at emergency department Decadron continue. Because family believed that patient was unable to take care of herself patient could be discharged home. steel construction worker consult to discuss next steps and disposition home. At this point patient is only at the hospital because family believes that she will be able to take care of herself at home. Hypertension On admission her blood pressure was fairly stable Atenolol continued. Trend blood pressure and adjust blood pressure medication as necessary. DVT prophylaxis Lovenox. CODE STATUS: Emergency department doctor reported that he spoke to Ryne Gabriel, Son and patient's mother. Emergency department doctor family agreed that patient wishes to be DNR CC with no CPR or intubation; or any aggressive treatment. Code Visit OBSV E&M: 72233 Initial observation care L3
--- NOTE | 2018-05-25 20:07 | CM.ED ---
SOCIAL WORK NOTE DR. DAY REQUESTING TO SPEAK WITH PT'S SON, HERIBERTO. CONTACT INFORMATION PROVIDED. DR. DAY ON PHONE WITH SON AT THIS TIME. YOEL GRIGGS, VIDEO PRODUCTION SPECIALIST, SOLAR PHOTOVOLTAIC INSTALLER.
--- NOTE | 2018-05-25 20:08 | CM.ED ---
SOCIAL WORK NOTE UPDATED NURSE, RALF, SPOKE WITH SON, HERIBERTO. HERIBERTO DOES NOT FEEL COMFORTABLE WITH PT BEING D/C'ED TO HOME. HERIBERTO CONCERNED WITH PT'S CONDITION AND REQUESTING PT BE OBSERVED OVERNIGHT. NURSING AND THIS WORKER TO UPDATE DR. DAY. YOEL GRIGSG, BILLIARD PLAYER, MANAGER COMPANY.
[2018-05-25 20:13] VITALS: BP 128/79; PULSE 79; RESP 17; O2SAT 95
--- NOTE | 2018-05-25 20:13 | CM.ED ---
SOCIAL WORK ASSESSMENT REFERRAL DATE: 05/25/18 DATE OF ASSESSMENT: 05/25/18 INFORMANT: PT'S NURSERALF REASON FOR CONSULT: FAMILY DYNAMICS/D/C PLANNING, SON DOES NOT FEEL IT IS SAFE FOR PT TO D/C HOME, TRANSPORTATION CONCERNS INFORMATION OBTAINED FROM: NURSERALF AND PT'S SONHERIBERTO ([phone]) LIVING ARRANGEMENTS: PER SON, PT LIVES HOME ALONE IN AN APARTMENT. PT'S MOTHER WHO IS IN HER 90'S ASSISTS ABLE. SUPPORTS: PT HAS LIMITED SUPPORT FROM FAMILY. SOCIAL/FAMILY STRESSORS: SON STATES DIFFICULT FAMILY DYNAMICS AND SOCIAL CONCERNS. SON CONTINUED TO STATE THAT PT SHOULD NOT BE D/C'ED HOME. SON STATES HAS ALREADY CONTACTED THE COURTS FOR GUARDIANSHIP HE DOES NOT FEEL PT IS ABLE TO MAKE OWN DECISIONS. MENTAL HEALTH HX:SON STATES PT WITH HX OF MENTAL HEALTH. SON UNSURE OF DIAGNOSIS. SUBSTANCE ABUSE HX: SON REPORTS PT WITH HX OF ALCOHOLISM AND DRUG ABUSE. ASSESSMENT: PT PRESENTS TO THE ED VIA SQUAD D/T FALL. PT WITH HEMATOMA TO LEFT EYE AFTER FALLING ON THE CEMENT. PT WITH HX OF BRAIN CANCER. ALL INFORMATION GATHERED THROUGH CHART REVIEW AND DISCUSSION WITH SON. PT UNABLE TO CARRY ON APPROPRIATE CONVERSATION D/T SPEECH FROM BRAIN CA. PER SON, UNSURE OF PT'S CURRENT CANCER TREATMENT OR IF SHE IS RECEIVING ANY FURTHER TREATMENT. SON REPORTS DIFFICULT FAMILY DYNAMICS. SON STATES PT'S ELDERLY MOTHER ASSISTS ABLE AND STATES PT IS NORMALLY INDEPENDENT AND LIVES ALONE IN AN APARTMENT. SON STATES PT WITH HX OF MENTAL HEALTH AND SUBSTANCE ABUSE. SON VOICES, I'M CONCERNED THE HOSPITAL DOES NOT WANT TO KEEP HER D/T HER PREVIOUS BEHAVIORS. SON ALSO CONTINUED TO STATE THE HOSPITAL SHOULD NOT D/C PT D/T LIABILITY REASONS. MUCH EDUCATION, ACTIVE LISTENING AND SUPPORT PROVIDED TO SON. SON STATES HE DOES NOT FEEL COMFORTABLE WITH PT BEING D/C'ED THIS DAY WITHOUT MONITORING OVER NIGHT HE STATES PT HIT HER HEAD. SON CONTINUED TO STATE, I KNOW MY MOM IS DYING. EMOTIONAL SUPPORT PROVIDED. DISCUSSED FUTURE NEED OF PALL CARE/HOSPICE IF PT HAS STOPPED ANY FURTHER TREATMENT FOR CANCER. SON IN AGREEMENT AND CONTINUES TO DISCUSS NEED TO FOLLOW THROUGH WITH GUARDIANSHIP OF PT. INFORMED SON THIS WORKER WILL DISCUSS ALL CONCERNS WITH DR. DAY. PLAN: NATHANAEL GRIGGS, INSTALL AND REPAIR TECHNICIAN, PILOT INSTRUCTOR.
--- NOTE | 2018-05-25 20:40 | CM.ED ---
SOCIAL WORK NOTE PT TO BE ADMITTED.
[2018-05-25 20:59] VITALS: BMI 28.4
[2018-05-25 21:02] VITALS: BP 111/71; PULSE 81; RESP 16; TEMP 36.6; O2SAT 98
--- NOTE | 2018-05-25 21:08 | NURSING ---
Pt is unable to answer questions and speech is at times incoherent. Unable to obtain med list.
[2018-05-25] MEDS: oxyCODONE 5 MG Tablet PO (21:30)
[2018-05-25] MEDS: Senna/Docusate Sodium 1 Tablet 2 TABLET PO (21:31)
[2018-05-25] MEDS: levETIRAcetam 500 MG Tablet PO (21:31)
[2018-05-25 22:29] VITALS: O2SAT 98
[2018-05-25] MEDS: Morphine 2 MG/ML Syringe IV (22:56)
[2018-05-25] MEDS: 0.9% NaCl Peripheral Flush Adult/Peds IV (23:01)
[2018-05-26 03:00] VITALS: BP 135/71; PULSE 86; RESP 16; TEMP 37; O2SAT 98
[2018-05-26] MEDS: oxyCODONE 5 MG Tablet PO ×3 (03:54→14:29)
[2018-05-26] MEDS: Morphine 2 MG/ML Syringe IV ×3 (05:13→17:56)
[2018-05-26] MEDS: 0.9% NaCl Peripheral Flush Adult/Peds IV ×3 (05:14→17:54)
[2018-05-26 08:00] VITALS: BP 113/77; PULSE 93; RESP 18; TEMP 36.9; O2SAT 98
[2018-05-26] MEDS: Senna/Docusate Sodium 1 Tablet 2 TABLET PO (09:41)
[2018-05-26] MEDS: levETIRAcetam 500 MG Tablet PO (09:41)
[2018-05-26] MEDS: Atenolol 25 MG Tablet PO (09:41)
--- NOTE | 2018-05-26 10:00 | CASEMGMT ---
Social Work Note Charge Nurse updated this worker that pt's son Narinder had called and wanted to speak to SW regarding discharge plans. TIAGO received call from aKla at [facility]. Per Kala pt's son Ryne had called [facility] and wanted to set up a meeting with pt to discuss options. Kala states that pt, pt's mom, and pt's son Ryne will be talking with Hospice around 4:00pm today. TIAGO placed a call to pt's son Ryne and per Ryne he has informed Narinder about plans for Hospice to evaluate pt and that they are both on the same page. SW will continue to follow along to assist with discharge planning. Plan: NATHANAEL Moreno E COMMERCE SOLUTION ARCHITECT, COMPUTER INFORMATION SCIENCE PROFESSOR
[2018-05-26 11:06] VITALS: BP 107/71
[2018-05-26 14:00] VITALS: BP 112/67; PULSE 87; RESP 18; TEMP 36.9; O2SAT 96
--- NOTE | 2018-05-26 15:33 | PCM.PN.HOSP ---
Patient Problems: Active and Suspected Problems (This Medical Record has been edited. Action required.) Left humeral fracture (Acute) Head contusion (Acute) Subjective: Patient was admitted overnight with a complaint of of a fall after she missed some steps. Patient had some expressive aphasia since it was difficult to obtain accurate history from her. CT scan done in the ED showed increasing vasogenic edema for which she is on Decadron. X-ray of the left upper extremity showed humeral neck fracture with displacement and patient's arm was placed in a sling. Family did not want any further intervention and patient was made DNR CC. Patient seen and examined. Patient is very confused and has flight of ideas. She was unable to answer any question and just keep talking about random things. Unable to do review of systems due to patient's severe confusion. Labs and vitals reviewed. Per discussion with nurse, no acute events overnight. Vitals/I&O's: Vital Signs Temp Pulse Resp BP Pulse Ox 98.5 F 87 18 112/67 96 05/26/18 14:00 05/26/18 14:00 05/26/18 14:00 05/26/18 14:00 05/26/18 14:00 Oxygen Delivery Method Room Air Weight: 198 lb 3.129 oz Body Mass Index (BMI) 28.4 Finger Stick Blood Glucose 138 Intake and Output for Last 24 Hours 05/24/18 05/25/18 05/26/18 23:59 23:59 23:59 Intake Total 600 / 600 Balance 600 / 600 General: Alert, Confused HEENT: Atraumatic, PERRLA, EOMI, Normocephalic Oral: Dry Mucosa Neck: Supple, No JVD, Negative Carotid Bruits Lungs: Clear to auscultation, Normal air movement, No rhonchi, No wheeze, No rales Cardiovascular: Regular rate, Regular Rhythm, Normal S1, Normal S2, No murmurs Abdomen: Bowel Sounds Present, Soft, Non Tender, Non-Distended, No Hepato-splenomegaly Extremities: No clubbing, No cyanosis, No edema, Capillary Refill Less than 3 Seconds Skin: No rashes, No breakdown Musculoskeletal: No Tenderness to Palpation of Joints or Extremities Lymphatic: No Cervical, Supraclavicular, or Inguinal Adenopathy Neurological: Cranial nerves II-XII grossly intact, Neuro grossly intact, Motor Exam 5/5 strength throughout Psych/Mental Status: - - very confused, with flight of ideas; talking randomly Current Medications Acetaminophen (Tylenol) 650 mg PO Q6H PRN PRN PRN Reason: Non-cardiac pain (mod-severe) Atenolol (Tenormin (Beta Cruz)) 25 mg PO DAILY [facility] Last Admin: 05/26/18 09:41 Dose: 25 mg Bisacodyl (Dulcolax) 5 mg PO DAILY PRN PRN PRN Reason: Constipation Dexamethasone (Decadron) 4 mg PO Q8 [facility] Last Admin: 05/26/18 14:29 Dose: 4 mg Enoxaparin Sodium (Lovenox) 40 mg SC DAILY@1000 VAIBHAV Levetiracetam (Keppra Tablet) 500 mg PO BID [facility] Last Admin: 05/26/18 09:41 Dose: 500 mg Magnesium Hydroxide (Milk Of Magnesia) 30 ml PO DAILY PRN PRN PRN Reason: Constipation Morphine Sulfate () 1 - 2 mg IV Q4H PRN PRN PRN Reason: PAIN Last Admin: 05/26/18 11:11 Dose: 2 mg Ondansetron HCl (Zofran) 4 mg IV Q8H PRN PRN PRN Reason: NAUSEA/VOMITING Oxycodone HCl (Oxyir) 5 mg PO Q4H PRN PRN PRN Reason: SEVERE PAIN (6-10/10) Last Admin: 05/26/18 14:29 Dose: 5 mg Senna/Docusate Sodium (Senokot-S, Keke-Colace) 2 tablet PO BID [facility] Last Admin: 05/26/18 09:41 Dose: 2 tablet Sodium Chloride () 5 - 15 ml IV UD PRN PRN Reason: SALINE FLUSH Last Admin: 05/26/18 11:10 Dose: 10 ml Medical Necessity - Tobacco Use Smoking Status: Former smoker Assessment/Plan All Active Problems (This Medical Record has been edited. Action required.) Left humeral fracture (Acute) Head contusion (Acute) 1. Humeral neck fracture due to mechanical fall On oxycodone as needed for pain Arm currently in a sling. Family only wanted conservative management. To follow-up with Dr. Atkinosn in 5-7 days. PT OT on board. 2. Debility due to mechanical fall ad brain cancer patient lives alone and is unable to care for herself at home. She is very confused and will not be safe living on her own PT OT on board awaiting placement 2. Glioblastoma with vasogenic edema Patient has a diagnosis of glioblastoma and CT of the head done on admission showed increasing vasogenic edema. On Decadron. family wants conservative measures only 3. Hypertension: On atenolol. Continue. DVT prophylaxis; lovenox Disposition: for placement I spoke to her son Neftaly on the phone today. Son said his brother was on his way to clam picker his mother to take her home. When asked if his brother would be caring for his mother he answered I guess. I explained to Neftaly that I was not comfortable with patient being discharged to go home on her own because she was at risk of further falls and in light of her severe confusion which she said was chronic and due to her glioblastoma, she could not take care of herself alone at home. She would therefore need a caregiver to be with her. He stated that there was no power of privacy attorney wanted to know how to proceed with the process for power of privacy attorney. I informed him he could talk to the continuous pillowcase cutter about the process of obtaining power of privacy attorney. I counseled him that his mother could not make decisions on her own as she was very confused and could not even carry on a coherent conversation. He wanted to know who would make the decisions for his mother. I informed him that the next of kin namely his brother and himself would respond before making the decisions in the best interest of the mother. Melissa stated that he would want his mother to be discharged under his care as he lived in [place] and his and children were at home and could care for his mother. I broached hospice care with Neftaly but he stated that his mother would want to go home. Discharge plan as of now is still uncertain. Will await further information from family. Code Visit Inpatient E&M: 98153 Subs Hosp L3
--- NOTE | 2018-05-26 15:37 | PN_ITS ---
Patient Problems: Active and Suspected Problems (This Medical Record has been edited. Action required.) Left humeral fracture (Acute) Head contusion (Acute) Subjective: Patient was admitted overnight with a complaint of of a fall after she missed some steps. Patient had some expressive aphasia since it was difficult to obtain accurate history from her. CT scan done in the ED showed increasing vasogenic edema for which she is on Decadron. X-ray of the left upper extremity showed humeral neck fracture with displacement and patient's arm was placed in a sling. Family did not want any further intervention and patient was made DNR CC. Patient seen and examined. Patient is very confused and has flight of ideas. She was unable to answer any question and just keep talking about random things. Unable to do review of systems due to patient's severe confusion. Labs and vitals reviewed. Per discussion with nurse, no acute events overnight. Vitals/I&O's: Vital Signs Temp Pulse Resp BP Pulse Ox 98.5 F 87 18 112/67 96 05/26/18 14:00 05/26/18 14:00 05/26/18 14:00 05/26/18 14:00 05/26/18 14:00 Oxygen Delivery Method Room Air Weight: 198 lb 3.129 oz Body Mass Index (BMI) 28.4 Finger Stick Blood Glucose 138 Intake and Output for Last 24 Hours 05/24/18 05/25/18 05/26/18 23:59 23:59 23:59 Intake Total 600 / 600 Balance 600 / 600 General: Alert, Confused HEENT: Atraumatic, PERRLA, EOMI, Normocephalic Oral: Dry Mucosa Neck: Supple, No JVD, Negative Carotid Bruits Lungs: Clear to auscultation, Normal air movement, No rhonchi, No wheeze, No rales Cardiovascular: Regular rate, Regular Rhythm, Normal S1, Normal S2, No murmurs Abdomen: Bowel Sounds Present, Soft, Non Tender, Non-Distended, No Hepato- splenomegaly Extremities: No clubbing, No cyanosis, No edema, Capillary Refill Less than 3 Seconds Skin: No rashes, No breakdown Musculoskeletal: No Tenderness to Palpation of Joints or Extremities Lymphatic: No Cervical, Supraclavicular, or Inguinal Adenopathy Neurological: Cranial nerves II-XII grossly intact, Neuro grossly intact, Motor Exam 5/5 strength throughout Psych/Mental Status: - - very confused, with flight of ideas; talking randomly Current Medications Acetaminophen (Tylenol) 650 mg PO Q6H PRN PRN PRN Reason: Non-cardiac pain (mod-severe) Atenolol (Tenormin (Beta Cruz)) 25 mg PO DAILY [facility] Last Admin: 05/26/18 09:41 Dose: 25 mg Bisacodyl (Dulcolax) 5 mg PO DAILY PRN PRN PRN Reason: Constipation Dexamethasone (Decadron) 4 mg PO Q8 [facility] Last Admin: 05/26/18 14:29 Dose: 4 mg Enoxaparin Sodium (Lovenox) 40 mg SC DAILY@1000 [facility] Levetiracetam (Keppra Tablet) 500 mg PO BID [facility] Last Admin: 05/26/18 09:41 Dose: 500 mg Magnesium Hydroxide (Milk Of Magnesia) 30 ml PO DAILY PRN PRN PRN Reason: Constipation Morphine Sulfate () 1 - 2 mg IV Q4H PRN PRN PRN Reason: PAIN Last Admin: 05/26/18 11:11 Dose: 2 mg Ondansetron HCl (Zofran) 4 mg IV Q8H PRN PRN PRN Reason: NAUSEA/VOMITING Oxycodone HCl (Oxyir) 5 mg PO Q4H PRN PRN PRN Reason: SEVERE PAIN (6-10/10) Last Admin: 05/26/18 14:29 Dose: 5 mg Senna/Docusate Sodium (Senokot-S, Keke-Colace) 2 tablet PO BID [facility] Last Admin: 05/26/18 09:41 Dose: 2 tablet Sodium Chloride () 5 - 15 ml IV UD PRN PRN Reason: SALINE FLUSH Last Admin: 05/26/18 11:10 Dose: 10 ml Medical Necessity - Tobacco Use Smoking Status: Former smoker Assessment/Plan All Active Problems (This Medical Record has been edited. Action required.) Left humeral fracture (Acute) Head contusion (Acute) 1. Humeral neck fracture due to mechanical fall * On oxycodone as needed for pain * Arm currently in a sling. Family only wanted conservative management. * To follow-up with Dr. Atkinson in 5-7 days. * PT OT on board. * 2. Debility due to mechanical fall ad brain cancer * patient lives alone and is unable to care for herself at home. She is very confused and will not be safe living on her own * PT OT on board * awaiting placement * 2. Glioblastoma with vasogenic edema * Patient has a diagnosis of glioblastoma and CT of the head done on admission showed increasing vasogenic edema. * On Decadron. * family wants conservative measures only * 3. Hypertension: On atenolol. Continue. DVT prophylaxis; lovenox Disposition: for placement * I spoke to her son Neftaly on the phone today. Son said his brother was on his way to [place] his mother to take her home. When asked if his brother would be caring for his mother he answered I guess. I explained to Neftaly that I was not comfortable with patient being discharged to go home on her own because she was at risk of further falls and in light of her severe confusion which she said was chronic and due to her glioblastoma, she could not take care of herself alone at home. She would therefore need a caregiver to be with her. He stated that there was no power of district attorney wanted to know how to proceed with the process for power of district attorney. I informed him he could talk to the case folder about the process of obtaining power of district attorney. I counseled him that his mother could not make decisions on her own as she was very confused and could not even carry on a coherent conversation. He wanted to know who would make the decisions for his mother. I informed him that the next of kin namely his brother and himself would respond before making the decisions in the best interest of the mother. Melissa stated that he would want his mother to be discharged under his care as he lived in [place] and his and children were at home and could care for his mother. I broached hospice care with Neftaly but he stated that his mother would want to go home. Discharge plan as of now is still uncertain. Will await further information from family. Code Visit Inpatient E&M: 56908 Subs Hosp L3
--- NOTE | 2018-05-26 17:28 | NURSING ---
REPORT CALLED TO ZAHRAA AT THE [facility]. TRANSPORT IS SUPPOSED TO PICK PT UP AT 1900. THIS NURSE PREVIOUSLY SENT DR LOWRY A TXT REQUESTING SOMETHING TO CALM HER DOWN PRIOR TO THE RIDE BUT HAVE NOT HEARD BACK OF YET.
[2018-05-26] MEDS: LORazepam 2 MG/ML Syringe 1 MG IV (17:54)
[2018-05-26] MEDS: LORazepam 2 MG/ML Syringe IV (19:50)
--- NOTE | 2018-05-26 19:50 | NURSING ---
pt became very agitated and was hollering and trying to climb off squads cart. order for additional 2mg iv ativan received and given.
--- NOTE | 2018-05-26 20:00 | NURSING ---
notified hospice inpatient unit that pt was on her was and was given an additional 2mg iv ativan
--- NOTE | 2018-05-27 07:05 | DS.PCM_ITS ---
Discharge Date and Diagnosis Date of Admission: 05/25/18 Date of Discharge: 05/26/18 - Primary Discharge Diagnosis left humeral fracture Hospital Course and Treatment Imaging Results: Diagnostic Data Brain CT 05/25/18 15:29 IMPRESSION: 1. Increasing vasogenic edema and mass effect of the left parietal, temporal and frontal lobes, suggesting underlying neoplasm. Operative changes of the left calvarium. Punctate densities are new since the prior study, likely related to prior surgery (chronic hemorrhage) or calcification. 2. Left frontal/periorbital soft tissue swelling. No subarachnoid hemorrhage is seen. No subdural hematoma. Electronically Signed: Ryne Florian MD at 16:30 EST , Service support , Shoulder X-Ray 05/25/18 15:29 IMPRESSION: Left humeral neck fracture with displacement. Electronically Signed: Ryne Florian MD at 16:32 EST , Service support , Wrist X-Ray 05/25/18 15:29 IMPRESSION: No fracture or malalignment. Electronically Signed: Ryne Florian MD at 16:31 EST , Service support , Operations: None Procedures: None Summary of Care Provided: The patient is a 62 year old F Patient who was admitted overnight with a complaint of of a fall after she missed some steps. Patient had some expressive aphasia since it was difficult to obtain accurate history from her. CT scan done in the ED showed increasing vasogenic edema for which she is on Decadron. X-ray of the left upper extremity showed humeral neck fracture with displacement and patient's arm was placed in a sling. Family did not want any further intervention and patient was made DNR CC. Patient remained very confused and had flight of ideas throughout his stay which family said was her baseline was due to a glioblastoma. Patient was therefore unable to make decisions for herself. Family decided to make patient hospice and patient was discharged to hospice inpatient facility on 05/26/2018. Patient seen and examined prior to discharge. She was very confused and was talking randomly. Unable to do review of systems on account of patient's confusion. Labs and vitals reviewed. Home medications reviewed and reconciled. o/e: Vital Signs Height 5 ft 10 in Weight: 198 lb 3.129 oz Weight in Pounds 198.2 lbs Pulse Ox 96 Temperature 98.5 F Pulse Rate 87 Respiratory Rate 18 Blood Pressure [BP] 107/71 Blood Pressure 112/67 Blood Pressure Position [BP] Semi-Fowlers Blood Pressure Position Semi-Fowlers [] General: Alert, Confused HEENT: Atraumatic, PERRLA, EOMI, Normocephalic Oral: Dry Mucosa Neck: Supple, No JVD, Negative Carotid Bruits Lungs: Clear to auscultation, Normal air movement, No rhonchi, No wheeze, No rales Cardiovascular: Regular rate, Regular Rhythm, Normal S1, Normal S2, No murmurs Abdomen: Bowel Sounds Present, Soft, Non Tender, Non-Distended, No Hepato- splenomegaly Extremities: No clubbing, No cyanosis, No edema, Capillary Refill Less than 3 Seconds Skin: No rashes, No breakdown Musculoskeletal: No Tenderness to Palpation of Joints or Extremities Lymphatic: No Cervical, Supraclavicular, or Inguinal Adenopathy Neurological: Cranial nerves II-XII grossly intact, Neuro grossly intact, Motor Exam 5/5 strength throughout; except LUE which was in a sling Psych/Mental Status: - - very confused, with flight of ideas; talking randomly Liyah stated above is for patient to be discharged to inpatient hospice facility. - Physical Exam Vital Signs Temp Pulse Resp BP Pulse Ox 98.5 F 87 18 112/67 96 05/26/18 14:00 05/26/18 14:00 05/26/18 14:00 05/26/18 14:00 05/26/18 14:00 Oxygen Delivery Method Room Air Weight: 198 lb 3.129 oz Body Mass Index (BMI) 28.4 Finger Stick Blood Glucose 138 Intake and Output for Last 24 Hours 05/25/18 05/26/18 05/27/18 23:59 23:59 23:59 Intake Total 600 / 600 Balance 600 / 600 Discharge Diet: Low fat/ Low Cholesterol Weight Bearing Status: Weight bearing as tolerated Home Medications: Medications to take at Discharge Atenolol [Tenormin (beta Cruz)] 25 mg PO DAILY 04/14/17 traMADol [Ultram (G)] 50 mg PO TID PRN PRN 04/14/17 Acetaminophen [Tylenol Extra Strength] 500 mg PO Q6H PRN PRN 08/02/17 Atenolol [Tenormin (beta Cruz)] 25 mg PO DAILY 08/02/17 Methocarbamol [Robaxin-750] 1,500 mg PO BID 08/02/17 Multivit-Min/FA/Lycopen/Lutein [Centrum Silver Tablet] 1 each PO DAILY 08/02/17 Quetiapine Fumarate [Seroquel] 50 mg PO QHS 08/02/17 levETIRAcetam tablet [Keppra tablet] 500 mg PO BID 08/02/17 traMADol [Ultram] 50 mg PO Q8H PRN 08/02/17 Oxycodone HCl/Acetaminophen [Percocet 5/325] 1 tab PO Q6H PRN PRN 5 Days #20 tab 05/25/18 Following Prescrptions Were Given to Patient: Oxycodone HCl/Acetaminophen [Percocet 5/325] 1 tab PO Q6H PRN PRN 5 Days #20 tab PRN Reason: Pain Primary Care Physician: Liban Atkinson DO [STAFF PHYSICIAN] - 5-7 Days Peewee Samano MD [Primary Care Provider] - As Needed Patient Instructions: ED Concussion, ED Contusion Upper Ext, ED Fx Shoulder, ED Sling and Swathe Disposition: Hospice Medical Facility Minutes spent on discharge:: 40 Patient Condition:: Fair Medical Necessity - Tobacco Use Smoking Status: Former smoker Meaningful Use Info Meaningful Use Diagnoses (Choose all that apply): None applicable Code Visit Inpatient E&M: 44882 Disch Hosp
== END 2018-05-26 19:50 | disposition hospice, inpatient (51) ==
LOC: ED 16:57 → MS3 20:39
PROVIDERS: Admitting Provider Hospitalist; Emergency Provider Emergency Medicine; Family Provider Internal Medicine; PCP Internal Medicine; Referring Provider Hospitalist; Visit Provider Student in an Organized Health Care Education/Training Program
DX: S42.202A Unspecified fracture of upper end of left humerus, initial encounter for closed fracture (principal); W10.9XXA Fall (on) (from) unspecified stairs and steps, initial encounter; Y93.9 Activity, unspecified; Y92.9 Unspecified place or not applicable; Z66 Do not resuscitate; R40.2410 Glasgow coma scale score 13-15, unspecified time; S60.212A Contusion of left wrist, initial encounter; C71.9 Malignant neoplasm of brain, unspecified; S00.93XA Contusion of unspecified part of head, initial encounter; R47.01 Aphasia; Z87.891 Personal history of nicotine dependence; I10 Essential (primary) hypertension; Z23 Encounter for immunization; Z79.899 Other long term (current) drug therapy
CPT/HCPCS: 70450; 73030; 73110; 90715; 96374; 96375; 96376; 97162; 97165; 99218; 99283; A4216; G0378; J2405